=== PATIENT | female | born 1985 | race Caucasian/White ===

== ENCOUNTER 2021-04-24 22:00 | Emergency (ER) | payer MEDICAID, OTHER ==
[~2021-04-24] VITALS: Ht 162.6 cm; Wt 54.4 kg
[2021-04-25] MEDS ORDERED: ONDANSETRON 4 MG TAB.RAPDIS ONE (06:38)
[2021-04-25] MEDS: ONDANSETRON 4 MG TAB.RAPDIS PO ONE (06:41)
[2021-04-25] MEDS ORDERED: ONDA4TAB5 PO (07:01)
[2021-04-25 07:31] VITALS: BP 116/84
== END 2021-04-25 07:31 | disposition home or self-care (01) ==
LOC: ER 22:04
DX: F10.229 Alcohol dependence with intoxication, unspecified (principal); Z60.2 Problems related to living alone; Y90.8 Blood alcohol level of 240 mg/100 ml or more
CPT/HCPCS: 36415; 80320; 82962; 99285; Q0162; G0480